=== PATIENT | female | born 1940 | race Caucasian/White ===

== ENCOUNTER 2017-11-27 06:14 | Day surgery (SDC) | payer MEDICARE, BC ==
[2017-11-27] VITALS (13 sets, daily range): BP systolic 90–143; BP diastolic 44–80
[~2017-11-27] VITALS: Ht 152.4 cm; Wt 58.2 kg
[2017-11-27] MEDS ORDERED: normal saline 1000ml 1,000 ML IV SCH (06:38)
[2017-11-27] MEDS ORDERED: diphenhydrAMINE 25mg capsule PO PRN (06:40)
[2017-11-27] MEDS ORDERED: DENO60DI (06:56)
[2017-11-27] MEDS ORDERED: CETI10CA PO (06:56)
[2017-11-27] MEDS ORDERED: ASPI-611 PO (06:56)
[2017-11-27] MEDS ORDERED: ALPR-623 PO (06:56)
[2017-11-27] MEDS ORDERED: NITR0.4T48 SL (06:56)
[2017-11-27] MEDS ORDERED: METO-539 PO (06:56)
[2017-11-27] MEDS ORDERED: CHOL50004 PO (06:56)
[2017-11-27] MEDS ORDERED: AMLO2.5T2 PO (06:56)
[2017-11-27] MEDS ORDERED: CA C1TAB95 (06:56)
[2017-11-27] MEDS ORDERED: SIMV40TA4 PO (06:56)
[2017-11-27 07:11] LABS: BASOPHILS % (AUTO) 0.5 % (0-1); EOSINOPHILS # (AUTO) 0.2 X10'3 (0-0.9); EOSINOPHILS % (AUTO) 2.2 % (0-6); HEMATOCRIT 46.6 % (35.0-45.0); HEMOGLOBIN 15.6 g/dl (12.0-16.0); LYMPHOCYTES # (AUTO) 3.1 X10'3 (1.1-4.8); LYMPHOCYTES % (AUTO) 36.4 % (21-51); MEAN CORPUSCULAR HEMOGLOBIN 30.5 PG (27.0-31.0); MEAN CORPUSCULAR HGB CONC 33.5 % (33.0-36.5); MEAN CORPUSCULAR VOLUME 91.1 FL (78-98); MEAN PLATELET VOLUME 9.4 FL (7.4-10.4); MONOCYTES # (AUTO) 0.6 X10'3 (0-0.9); MONOCYTES % (AUTO) 7.4 % (2-12); NEUTROPHILS # (AUTO) 4.6 X10'3 (1.8-7.7); NEUTROPHILS % (AUTO) 53.5 % (42-75); PLATELET COUNT 279 X10'3 (140-440); RED BLOOD COUNT 5.11 X10'6 (4.20-5.60); RED CELL DISTRIBUTION WIDTH 14.2 % (11.5-14.5); WHITE BLOOD COUNT 8.6 X10'3 (4.5-11.0)
[2017-11-27 07:21] LABS: ALBUMIN 4.8 G/DL (3.4-5.0); ANION GAP 12 (8-16); BLOOD UREA NITROGEN 18 MG/DL (7-18); BUN/CREATININE RATIO 16.5 (6.6-38.0); CALCIUM 9.7 MG/DL (8.5-10.1); CHLORIDE 104 MMOL/L (99-107); CREATININE 1.09 MG/DL (0.40-0.90); GLUCOSE 96 MG/DL (70-104); MAGNESIUM 2.2 MG/DL (1.5-2.4); POTASSIUM 3.5 MMOL/L (3.5-5.1); PROTHROMBIN TIME 10.3 SECONDS (9.0-12.0); SODIUM 142 MMOL/L (135-145); TOTAL CARBON DIOXIDE 26.5 MMOL/L (24-32); eGFR 49 ML/MIN
[2017-11-27] MEDS ORDERED: fentaNYL/PF 50MCG/1 ML 2ML syringe ONE (07:35)
[2017-11-27] MEDS ORDERED: midazolam 2 mg/2 ml injection ONE ×2 (07:35→08:11)
[2017-11-27] MEDS ORDERED: LIDOcaine 1%/PF (10mg/ml) 5ml vial ONE ×2 (07:36)
[2017-11-27] MEDS ORDERED: iohexol 350 MG/ML 50ML vial IV ONE (07:36)
[2017-11-27] MEDS ORDERED: iohexol 350MG/ML 100ml bottle IV ONE (07:36)
[2017-11-27] MEDS ORDERED: nitroGLYCERIN 0.4mg SUBLingual tab SL ONE (08:27)
[2017-11-27] MEDS ORDERED: normal saline 1000ml 1,000 ML IV ONE (12:30)
[2017-11-27] MEDS ORDERED: pantoprazole 40mg Tablet.DR PO ONE (12:30)
== END 2017-11-27 12:35 | disposition home or self-care (01) ==
LOC: SSTAY O 06:14
PROVIDERS: ATTEND Internal Medicine Cardiovascular Disease
DX: I25.10 Atherosclerotic heart disease of native coronary artery without angina pectoris (principal); I10 Essential (primary) hypertension; E78.5 Hyperlipidemia, unspecified; F41.9 Anxiety disorder, unspecified; Z90.710 Acquired absence of both cervix and uterus; Z98.890 Other specified postprocedural states; Z90.89 Acquired absence of other organs; Z79.82 Long term (current) use of aspirin; Z95.5 Presence of coronary angioplasty implant and graft; Z72.89 Other problems related to lifestyle; Z79.899 Other long term (current) drug therapy
CPT/HCPCS: 36415; 80048; 83735; 85025; 85610; 93458; 99152; 99153; A6257; C1760; C1769; C1894; J1644; J2001; J2250; J3010; J7030; Q0163; Q9967; A4620